=== PATIENT | female | born 1985 | race Caucasian/White ===

== ENCOUNTER 2020-04-16 05:42 | Inpatient (IN) | payer OTHER ==
[~2020-04-16] VITALS: Ht 175.3 cm; Wt 85.5 kg
[~2020-04-16 05:42] MED LIST: CeFAZolin 1 GM/DEXTROSE 50 ML IV ONE; RINGERS SOLUTION,LACTATED 1,000 ML IV ONE
[2020-04-16] MEDS ORDERED: RINGERS SOLUTION,LACTATED 1,000 ML IV ONE ×2 (06:00→07:57)
[2020-04-16] MEDS ORDERED: SODIUM CHLORIDE 0.9% 1,000 ML IV ONE (06:30)
[2020-04-16] MEDS ORDERED: CeFAZolin 1 GM/DEXTROSE 50 ML IV ONE (06:30)
[2020-04-16] MEDS ORDERED: BUPIVACAINE LIPOSOME/PF 1.3%-13.3MG/ML SUSPENSION 20 ML VIAL INJ ONE (06:45)
[2020-04-16 06:49] LABS: BASOPHILS % (AUTO) 0.5 % (0.0-2.0); EOSINOPHILS % (AUTO) 3.6 % (1.0-6.0); HEMATOCRIT 35.7 % (36-46); HEMOGLOBIN 12.1 g/dL (12.0-16.0); LYMPHOCYTES # (AUTO) 2.3 K/uL (1.0-4.8); LYMPHOCYTES % (AUTO) 30.1 % (22.0-44.0); MEAN CORPUSCULAR HEMOGLOBIN 29.7 pg (26.0-34.0); MEAN CORPUSCULAR HGB CONC 33.9 G/dL (31.0-37.0); MEAN CORPUSCULAR VOLUME 88 fL (80-100); MONOCYTES # (AUTO) 0.6 K/uL (0.1-1.0); MONOCYTES % (AUTO) 8.5 % (2.0-9.0); NEUTROPHILS # (AUTO) 4.3 K/uL (1.8-7.7); NEUTROPHILS % (AUTO) 57.3 % (40.0-70.0); PLATELET COUNT (AUTO) 279 K/uL (150-450); RED BLOOD CELL COUNT(AUTO) 4.07 MIL/uL (4.00-5.20); RED CELL DISTRIBUTION WIDTH 13.1 % (11.5-14.5)
[2020-04-16 07:00] LABS: ANION GAP 12 mmol/L (8-16); CALCIUM, TOTAL 8.8 mg/dL (8.8-10.5); CARBON DIOXIDE 21 mmol/L (22-29); CHLORIDE 104 mmol/L (98-107); CREATININE 1.05 mg/dL (0.60-1.30); GLOMERULAR FILTR. RATE CALC 59 mL/min (>60); GLUCOSE,RANDOM 84 mg/dL (70-110); POTASSIUM 3.8 mmol/L (3.5-5.1); SODIUM SERUM 137 mmol/L (136-145); UREA NITROGEN, BLOOD 14 mg/dL (7-18)
[2020-04-16 07:08] LABS: PROTHROMBIN TIME 10.8 SEC (9.4-11.6)
[2020-04-16 07:12] LABS: ALANINE AMINOTRANSFERASE 23 U/L (12-78); ALBUMIN 3.6 g/dL (3.4-5.0); ALKALINE PHOSPHATASE 45 U/L (46-116); ASPARTATE AMINOTRANSFERASE 16 U/L (15-37); BILIRUBIN,TOTAL 0.4 mg/dL (0.1-1.0); HCG,QUANTITATIVE < 1 mIU/mL (0-6); TOTAL PROTEIN, SERUM 6.9 g/dL (6.4-8.2)
[2020-04-16] MEDS ORDERED: DiphenhydrAMINE HCL 50 MG/ML VIAL IVP PRN (07:30)
[2020-04-16] MEDS ORDERED: DEXAMETHASONE SOD PHOS 4 MG/ML VIAL IVP PRN (07:30)
[2020-04-16] MEDS ORDERED: ZOLPIDEM TARTRATE 10 MG TABLET PO PRN (07:30)
[2020-04-16] MEDS ORDERED: MAG HYDROX/AL HYDROX/SIMETH 30 ML SUSP UDCUP PO PRN (07:30)
[2020-04-16] MEDS ORDERED: SUGAMMADEX SODIUM 200 MG/2 ML VIAL IVP ONE (07:57)
[2020-04-16 08:00] LABS: COVID AG,FIA SOURCE NASOPHARYNGEAL
[2020-04-16] MEDS ORDERED: MEPERIDINE-PF 25 MG/ML VIAL IVP PRN (08:00)
[2020-04-16] MEDS ORDERED: HYDROmorphone 2 MG/ML VIAL IVP PRN (08:00)
[2020-04-16] MEDS ORDERED: FentaNYL CITRATE PF 100 MCG/2 ML VIAL IVP PRN (08:00)
[2020-04-16] MEDS ORDERED: ONDANSETRON HCL 4 MG/2 ML VIAL IVP PRN (08:15)
[2020-04-16] MEDS ORDERED: ZOLPIDEM TARTRATE 5 MG TABLET PO PRN (08:15)
[2020-04-16] MEDS ORDERED: IOHEXOL 240 MG/ML 20 ML VIAL ONE (08:25)
[2020-04-16] MEDS ORDERED: BUPIVACAINE HCL 0.5% 50 ML VIAL IM ONE (08:30)
[2020-04-16] MEDS ORDERED: VANCOMYCIN HCL 1 GM/VIAL ONE (09:55)
[2020-04-16] MEDS ORDERED: MEPERIDINE-PF 25 MG/ML VIAL ONE (10:42)
[2020-04-16 11:34] VITALS: BP 131/76
[2020-04-16] MEDS ORDERED: KETOROLAC TROMETHAMINE 60 MG/2 ML VIAL IM ONE (12:00)
[2020-04-16] MEDS ORDERED: DEXAMETHASONE SOD PHOS 4 MG/ML VIAL IVP ONE (12:00)
[2020-04-16] MEDS ORDERED: HYDROmorphone 2 MG/ML VIAL IVP ONE (12:00)
[2020-04-16] MEDS ORDERED: MIDAZOLAM HCL 2 MG/2 ML VIAL IVP ONE (12:00)
[2020-04-16] MEDS ORDERED: ONDANSETRON HCL 4 MG/2 ML VIAL IVP ONE (12:00)
[2020-04-16] MEDS ORDERED: FentaNYL CITRATE PF 100 MCG/2 ML VIAL IVP ONE (12:00)
[2020-04-16] MEDS ORDERED: LIDOCAINE/PF 2% 5 ML VIAL IM ONE (12:00)
[2020-04-16] MEDS ORDERED: PROPOFOL 1% 20 ML VIAL IVP ONE (12:00)
[2020-04-16] MEDS ORDERED: 0.9% SODIUM CHLORIDE 10 ML VIAL IVP ONE (12:00)
[2020-04-16] MEDS: HYDROmorphone 2 MG/ML VIAL IVP PRN (13:04)
[2020-04-16] MEDS: DOCUSATE SODIUM 100 MG CAPSULE PO SCH ×3 (13:16→21:13)
[2020-04-16] MEDS: ACETAMINOPHEN 1000 MG/ISO-OSM 100 ML IV SCH ×2 (13:17→19:44)
[2020-04-16] MEDS ORDERED: DiphenhydrAMINE HCL 50 MG/ML VIAL IVP ONE (13:30)
[2020-04-16 15:49] VITALS: BP 118/64
[2020-04-16] MEDS: OXYGEN THERAPY IH SCH (19:48)
[2020-04-16] MEDS: CYCLOBENZAPRINE HCL 10 MG TABLET PO PRN ×2 (19:48→21:13)
[2020-04-16 20:00] VITALS: BP 117/66
[2020-04-16] MEDS: OxyCODONE HCL 5 MG IR TABLET PO PRN (22:30)
[2020-04-16 23:49] VITALS: BP 116/69
[2020-04-17] MEDS: ACETAMINOPHEN 1000 MG/ISO-OSM 100 ML IV SCH ×2 (01:44→06:59)
[2020-04-17 05:13] VITALS: BP 109/60
[2020-04-17] MEDS ORDERED: INFLUENZA VIRUS VACCINE QVS 2020-21 (6MO+)/PF 60 MCG/0.5 ML SYRINGE IM ONE (07:15)
[2020-04-17 07:33] VITALS: BP 110/51
[2020-04-17] MEDS: DOCUSATE SODIUM 100 MG CAPSULE PO SCH ×2 (09:11→20:04)
[2020-04-17] MEDS: OxyCODONE HCL 5 MG IR TABLET PO PRN (11:26)
[2020-04-17 15:21] VITALS: BP 124/70
[2020-04-17] MEDS: HYDROmorphone 2 MG/ML VIAL IVP PRN (16:07)
[2020-04-17] MEDS ORDERED: TYLENOL #3 PO (16:21)
[2020-04-17] MEDS: OxyCODONE HCL/ACETAMINOPHEN 10-325 MG TABLET PO PRN ×2 (20:04→23:15)
[2020-04-17 21:20] VITALS: BP 112/65
[2020-04-17] MEDS: CYCLOBENZAPRINE HCL 10 MG TABLET PO PRN (21:21)
[2020-04-18] VITALS: BP 106/67
[2020-04-18] MEDS: CYCLOBENZAPRINE HCL 10 MG TABLET PO PRN (04:16)
[2020-04-18] MEDS: OxyCODONE HCL/ACETAMINOPHEN 10-325 MG TABLET PO PRN ×3 (04:17→13:58)
[2020-04-18 04:46] VITALS: BP 106/61
[2020-04-18 08:00] VITALS: BP 113/64
[2020-04-18] MEDS: OXYGEN THERAPY IH SCH (08:00)
[2020-04-18] MEDS: DOCUSATE SODIUM 100 MG CAPSULE PO SCH (08:22)
[2020-04-18 11:00] VITALS: BP 126/74
[2020-04-18 11:15] VITALS: BP 122/74
[2020-04-18 11:24] VITALS: BP 124/82
== END 2020-04-18 16:30 | disposition home or self-care (01) | DRG 455 ==
LOC: 4E 05:42 → 6N 04-17 19:32
PROVIDERS: ADMIT Orthopaedic Surgery Orthopaedic Surgery of the Spine; ATTEND Orthopaedic Surgery Orthopaedic Surgery of the Spine
PROC: 0SG30A0 Fusion of Lumbosacral Joint with Interbody Fusion Device, Anterior Approach, Anterior Column, Open Approach (ICD-10-PCS; 2020-04-16)
PROC: 0SG3071 Fusion of Lumbosacral Joint with Autologous Tissue Substitute, Posterior Approach, Posterior Column, Open Approach (ICD-10-PCS; principal; 2020-04-16 07:30)
DX: M48.07 Spinal stenosis, lumbosacral region (principal); M51.27 Other intervertebral disc displacement, lumbosacral region; Z20.822 Contact with and (suspected) exposure to COVID-19
CPT/HCPCS: 86850; 86900; 86901; 87081; 87426; 93005; 97161; 97165; 97535; A9575; C9290; G0238; G0378; J0131; J0690; J1100; J1170; J1200; J1885; J2175; J2250; J2405; J2704; J3010; J3370; J3490; J7030; J7120; Q9966